=== PATIENT | female | born 1955 | race Caucasian/White ===

== ENCOUNTER 2016-07-16 08:22 | Emergency (ER) | payer OTHER ==
--- NOTE | 2016-07-16 08:44 | Emergency Department Record ---
History of Present Illness - General Chief complaint: Extremity Problem Stated complaint: RT ARM PAIN/JAW PAIN Time Seen by Provider: 07/16/16 08:34 Source: Patient Mode of Arrival: Ambulatory Limitations: No limitations - History of Present Illness Initial comments: 60 yo female presents with right arm pain. The onset was this morning. She had some associated neck painon the right. No history of CAD. The symptoms started at rest in bed. No exertional symptoms. No chest pain or pressure. No nausea, sweating or shortness of breath. She has had a recent URI with cough. No NVD. She was painting with a roller yesterday as well with a repetitive movement. She got complete relief with Aspirin. Non smoker. No family history of CAD. MD Complaint: Extremity pain Onset/Timin -: Hour(s) Location: Right, Arm History of Same: No Radiation: Other Severity scale (1-10): 1 Quality: Aching Consistency: Constant Improves with: Medication Worsens with: Nothing Associated Symptoms: Denies other symptoms - Related Data Home Medications Medication Instructions Recorded Confirmed Last Taken Multivitamin/Iron/Folic Acid 1 tab PO DAILY 07/16/16 07/16/16 07/16/16 [Centrum] Pramipexole Di-HCl [Mirapex] 0.5 mg PO DAILY 07/16/16 07/16/16 07/16/16 Allergies Allergy/AdvReac Type Severity Reaction Status Date / Time codeine Allergy DIAPHORESIS Verified 07/16/16 08:40 Penicillins Allergy RASH Verified 07/16/16 08:40 Travel Screening - Travel/Exposure Within Last 30 Days Have you traveled within the last 30 days?: No - Travel/Exposure Within Last Year Have you traveled outside the [place] in the last year?: No - Additonal Travel Details Have you been exposed to anyone with a communicable illness?: No - Travel Symptoms Symptom Screening: None Review of Systems Constitutional: Denies: Chills, Malaise, Weakness Eyes: Denies: Eye discharge, Eye pain, Photophobia ENT: Denies: Congestion, Ear pain, Throat pain Respiratory: Reports: Cough. Denies: Dyspnea, Hemoptysis, Stridor, Wheezes Cardiovascular: Denies: Arrhythmia, Chest pain, Dyspnea on exertion, Palpitations, Syncope Endocrine: Denies: Fatigue, Polydipsia, Polyuria Gastrointestinal: Denies: Abdominal pain, Diarrhea, Nausea, Vomiting Genitourinary: Denies: Dysuria, Urgency Musculoskeletal: Reports: As per HPI, Arthralgia, Myalgia, Neck pain. Denies: Back pain, Joint swelling Skin: Denies: Bruising, Change in color, Rash Neurological: Denies: Confusion, Headache, Numbness, Tingling, Tremors, Vertigo , Weakness Psychiatric: Denies: Anxiety Hematological/Lymphatic: Denies: Blood Clots, Easy bleeding, Easy bruising Physical Exam - General General Appearance: Alert, Oriented x3, Cooperative, No acute distress Limitations: No limitations - Head Head exam: Normal inspection - Eye Eye exam: Normal appearance, PERRL. negative: Conjunctival injection, Periorbital swelling - ENT ENT exam: Normal exam, Mucous membranes moist, Normal external ear exam, Normal orophraynx, TM's normal bilaterally Ear exam: Normal external inspection. negative: External canal tenderness Nasal Exam: Normal inspection. negative: Discharge, Sinus tenderness Mouth exam: Normal external inspection, Tongue normal Teeth exam: Normal inspection. negative: Dental caries - Neck Neck exam: Normal inspection, Full ROM. negative: Tenderness - Respiratory Respiratory exam: Normal lung sounds bilaterally. negative: Respiratory distress - Cardiovascular Cardiovascular Exam: Regular rate, Normal rhythm, Normal heart sounds Peripheral Pulses: 2+: Radial (R), Radial (L) - GI/Abdominal GI/Abdominal exam: Soft. negative: Distended - Rectal Rectal exam: Deferred - exam: Deferred - Extremities Extremities exam: Normal inspection, Full ROM, Normal capillary refill. negative: Calf tenderness, Joint swelling, Pedal edema, Tenderness - Back Back exam: Reports: Normal inspection, Full ROM. Denies: CVA tenderness (R), Muscle spasm, Rash noted, Tenderness - Neurological Neurological exam: Alert, Normal gait, Oriented X3, Reflexes normal - Psychiatric Psychiatric exam: Normal affect, Normal mood - Skin Skin exam: Dry, Intact, Normal color, Warm Course Vital Signs 07/16/16 08:27 Temperature 97.5 F L Pulse Rate 68 Respiratory 16 Rate Blood Pressure 160/81 Pulse Ox 98 - Reevaluation(s) Reevaluation #1: EKG 0837 NSR, rate 58, intervals normal, axis normal, ST normal. No old. 07/16/16 08:44 Reevaluation #2: I discussed the EKG and the symptoms with the patient The symptoms are atypical. The EKG is normal She does not have any risk factors for CAD. I did recommend 4 hours enzymes. If negative will DC home. 07/16/16 09:02 Reevaluation #3: Troponin is normal at 0.012 No changes on the CBC or CMP 07/16/16 09:55 Reevaluation #4: Repeat Troponin is negative We discussed the results, reasons for immediate return and follow up 07/16/16 12:54 Medical Decision Making - Lab Data Result diagrams: 07/16/16 08:50 07/16/16 08:50 Disposition Disposition: Discharge Clinical Impression: Right shoulder pain Qualifiers: Chronicity: acute Qualified Code(s): M25.511 - Pain in right shoulder Disposition: Home, Self-Care Condition: (1) Good Instructions: Chest Pain (ED) Additional Instructions: Immediately return to the ER if you have any return of pain, any nausea, shortness of breath, chest pain or new symptoms Call your doctor Sunday to schedule a recheck this week to discuss the ER visit and your symptoms Return immediately if any symptoms are brought on by exertion or exercise Forms: Patient Portal Access Time of Disposition: 12:54
[2016-07-16 09:21] LABS: EOS % 10.8 % (0-6); GRAN % 51.2 % (47-80); HEMATOCRIT 41.1 % (35.0-47.0); HEMOGLOBIN 13.6 gm/dl (11.6-16.0); LYMPH % 25.5 % (16-45); MEAN CELL VOLUME 93.6 fl (81-97); MEAN CORPUSCULAR HGB CONC 33.1 g/dl (32-36); MEAN PLATELET VOLUME 9.8 fl (7.4-10.4); MONO % 11.5 % (0-9); PLATELET COUNT 297 K/uL (130-400); RED BLOOD COUNT 4.39 M/uL (3.80-5.40); RED CELL DISTRIBUTION WIDTH 13.9 % (11.5-14.5); WHITE BLOOD COUNT W/O DIFF 8.2 K/uL (4.2-12.2)
[2016-07-16 09:32] LABS: ANION GAP 11.2 (7-16); BLOOD UREA NITROGEN 23 mg/dL (7-17); CARBON DIOXIDE 26.8 mmol/L (22-30); CREATININE 0.7 mg/dL (0.52-1.04); EST GLOMERULAR FILTRATION RATE > 60 ml/min; GLUCOSE,RANDOM 98 mg/dL (70-110)
[2016-07-16 09:45] LABS: TROPONIN I < 0.012 ng/mL (0.00-0.034)
== END 2016-07-16 13:04 | disposition home or self-care (01) ==
LOC: ER 08:22
DX: M25.511 Pain in right shoulder (principal); M54.2 Cervicalgia
CPT/HCPCS: 80048; 84484; 85025; 93005; 93010; 99284